=== PATIENT | female | born 1965 ===

== ENCOUNTER 2019-05-18 17:08 | Emergency (ER) | payer BC ==
--- NOTE | 2019-05-18 18:18 | ER ---
Nurse's Notes [facility] Name: Madelin Schilling Age: 54 yrs Sex: Female : 1965 Arrival Date: 05/18/2019 Time: 17:22 Bed Waiting Private MD: Unknown, Unknown Diagnosis: ED Course: 05/18 17:22 Patient arrived in ED. ag5 17:22 Unknown, Unknown is Private Physician. ag5 17:38 Patient's name was called from ER lobby. No response. aj1 18:00 Patient's name was called from ER lobby. No response. aj1 18:17 Patient's name was called from ER lobby. No response. Unable to locate patient. Will aj1 disposition as left without being seen by a provider. Administered Medications: No medications were administered Outcome: 18:17 Patient left the ED. aj1 Signatures: Genie Castañeda RN RN aj1 Vesna Mccarty agChrista
== END 2019-05-18 18:17 | disposition left against medical advice (07) ==
LOC: ER 17:08
DX: Z02.9 Encounter for administrative examinations, unspecified (principal)